=== PATIENT | female | born 1960 ===

== ENCOUNTER 2019-04-26 11:53 | Outpatient (CLI) | payer BC, SELFPAY ==
--- NOTE | ~2019-04-26 | CT_ITS ---
EXAMINATION: CT abdomen pelvis wo con EXAM DATE: 04/26/2019 12:20 INDICATION: Right flank pain, hematuria. TECHNIQUE: Spiral CT of the abdomen and pelvis was performed without contrast. Axial, coronal and sag ittal images were reviewed. The dose-length product (DLP) for this examination was 175.20 mGy-cm. T he exposure was tailored according to patient size (auto mA exposure control), and iterative reconstr uction (ASIR) was used as additional dose reduction technique. There is no prior study for compariso n. FINDINGS: There is mild right-sided hydronephrosis and perinephric fat stranding, and at least partia lly duplicated right renal collecting system. No nephrolithiasis or obstructing stones identified. T he uterus is unremarkable. The bladder is unremarkable. The liver, spleen, adrenal glands and panc reas are unremarkable. Gallbladder is unremarkable. No biliary obstruction. There is no retroperit carias or pelvic lymphadenopathy. The appendix is not positively visualized. There is no pericecal inflammatory change to suggest appe ndicitis. The stomach and small bowel are unremarkable. There is expected amount of colonic stool. No free intraperitoneal gas. The heart is normal in size. There are no pericardial or pleural e ffusions. Triangular shaped 5 mm right middle lobe nodule. Subacute left lower rib fractures latera lly. Mild emphysema. IMPRESSION: 1. Partially duplicated right renal collecting system with mild right hydronephrosis and perinephric fat stranding but no obstructing stones. Could indicate recently passed stone or upper urinary tract infection. Correlate with urinalysis. 2. Subacute left lateral rib fractures. 3. Regular shaped right middle lobe nodule; consider one-year follow-up low-dose chest CT. Reviewed, dictated and finalized at location A. [employer] IMPRESSION: 1. Partially duplicated right renal collecting system with mild right hydronep hrosis and perinephric fat stranding but no obstructing stones. Could indicate recently passed stone or upper urinary tract infection. Correlate with urinalys is. 2. Subacute left lateral rib fractures. 3. Regular shaped right middle lobe nodule; consider one-year follow-up low-do se chest CT.
[2019-04-26 12:37] LABS: Basophils Percent Auto 0.1 % (0.2-1.2); Hemoglobin 12.4 g/dL (12.0-15.0); Immature Granulocyte Absolute 0.05 K/mm3 (0.00-0.031); Immature Granulocyte Percent A 0.3 % (0-0.5); Lymphocytes Absolute Auto 1.15 K/mm3 (0.9-3.2); Lymphocytes Percent Auto 7.3 % (18.3-44.2); Mean Corpuscular HGB Conc 33.5 g/dl (32-36); Mean Corpuscular Hemoglobin 29.2 pg (26-34); Mean Corpuscular Volume 87.3 fl (80-100); Mean Platelet Volume 8.6 fl (7.4-10.4); Monocytes Absolute Auto 0.9 K/mm3 (0.1-0.6); Monocytes Percent Auto 5.9 % (2.6-8.5); Neutrophils Absolute Auto 13.5 K/mm3 (1.3-6.7); Neutrophils Percent Auto 86.4 % (45.5-73.1); Platelet Count Result 315 k/mm3 (150-375); Red Blood Count 4.24 M/mm3 (4.2-5.4); Red Cell Distribution Width 13.6 % (11.5-14.5); White Blood Count 15.7 K/mm3 (4.5-10.0)
[2019-04-26 12:51] LABS: Alanine Aminotransferase 16 U/L (4-35); Albumin Level 4.6 g/dL (3.5-5.1); Alkaline Phosphatase 82 U/L (38-126); Aspartate Amino Transferase 23 U/L (14-36); Bilirubin,Total 0.8 mg/dL (0.2-1.3); Blood Urea Nitrogen 11 mg/dL (7-17); Calcium 9.2 mg/dL (8.4-10.2); Carbon Dioxide 29 mmol/L (22-30); Chloride 99 mmol/L (98-107); Estimated Glomerular Filt Rate > 60; Glucose 114 mg/dL (65-105); Potassium 3.8 mmol/L (3.4-5.0); Sodium 137 mmol/L (137-145)
== END 2019-04-26 11:54 | disposition home or self-care (01) ==
PROVIDERS: PCP Family Medicine; Visit Provider Physician Assistant
DX: R10.9 Unspecified abdominal pain (principal); R31.9 Hematuria, unspecified; S22.42XA Multiple fractures of ribs, left side, initial encounter for closed fracture; X58.XXXA Exposure to other specified factors, initial encounter
CPT/HCPCS: 36415; 74176; 80053; 85025

== ENCOUNTER 2019-05-29 15:05 | Outpatient (CLI) | payer BC, SELFPAY ==
--- NOTE | ~2019-05-29 | CT_ITS ---
EXAMINATION: CT abdomen pelvis wo con EXAM DATE: 05/29/2019 15:32 INDICATION: Right flank pain, hematuria. TECHNIQUE: Spiral CT of the abdomen and pelvis was performed without contrast. Axial, coronal and sag ittal images were reviewed. The dose-length product (DLP) for this examination was 182.30 mGy-cm. T he exposure was tailored according to patient size (auto mA exposure control), and iterative reconstr uction (ASIR) was used as additional dose reduction technique. Comparison is made to prior examinatio n from 04/26/2019. FINDINGS: There is no nephrolithiasis or hydronephrosis. Partially duplicated right renal collecting system. The uterus is unremarkable. The bladder is unremarkable. The liver, spleen, adrenal glands and pancreas are unremarkable. Gallbladder is unremarkable. No biliary obstruction. There is no r etroperitoneal or pelvic lymphadenopathy. The appendix is not positively visualized. There is no pericecal inflammatory change to suggest appe ndicitis. The stomach and small bowel are unremarkable. There is expected amount of colonic stool. No free intraperitoneal gas. The heart is normal in size. There are no pericardial or pleural e ffusions. There is 6 mm triangular shaped right middle lobe density likely granuloma but consider on e-year follow-up low-dose chest CT. Subacute left eighth and ninth rib fractures laterally. IMPRESSION: 1. Partially duplicated right renal collecting system. No nephrolithiasis, hydronephrosis or acute i ntra-abdominal findings. 2. Subacute left lateral rib fractures. 3. Right middle lobe nodule probably granuloma; consider one-year follow-up low-dose chest CT. Reviewed, dictated and finalized at location A. IMPRESSION: 1. Partially duplicated right renal collecting system. No nephrolithiasis, hyd ronephrosis or acute intra-abdominal findings. 2. Subacute left lateral rib fractures. 3. Right middle lobe nodule probably granuloma; consider one-year follow-up lo w-dose chest CT.
== END 2019-05-29 15:06 | disposition home or self-care (01) ==
LOC: ANHIMG 15:07
PROVIDERS: PCP Family Medicine; Visit Provider Physician Assistant
DX: R31.9 Hematuria, unspecified (principal); R91.8 Other nonspecific abnormal finding of lung field
CPT/HCPCS: 74176

== ENCOUNTER 2020-09-12 14:24 | Outpatient (CLI) | payer BC, SELFPAY ==
--- NOTE | ~2020-09-12 | CT_ITS ---
EXAMINATION:CT diagnostic chest wo con DATE: 09/12/2020 14:38 INDICATION: Lung nodule. TECHNIQUE: Computed tomography (CT) of the chest was performed without intravenous contrast. Automate d exposure control and iterative reconstruction technique were employed. The dose-length product (DLP ) was 96.99 mGy-cm. COMPARISON: CT abdomen and pelvis 05/29/2019 FINDINGS: There is mild scarring at the lung apices. There is a 5 mm nodule in right middle lobe, sta ble from 05/29/2019. There is a 3 mm nodule in right upper lobe. A calcified left lung nodule and calci fied left hilar lymph nodes are consistent with old granulomatous disease. No pleural effusion. The h eart size is normal. No pericardial effusion. Breast implants are noted. There is mild thoracic spond ylosis. IMPRESSION: 1. Small pulmonary nodules, likely benign. Reviewed, dictated and finalized at location A.
== END 2020-09-12 14:25 | disposition home or self-care (01) ==
LOC: ANHIMG 14:26
PROVIDERS: PCP Family Medicine; Visit Provider Physician Assistant
DX: R91.8 Other nonspecific abnormal finding of lung field (principal)
CPT/HCPCS: 71250

== ENCOUNTER 2024-08-09 15:52 | Emergency (ER) | payer OTHER, SELFPAY ==
[2024-08-09 16:02] VITALS: BP 148/69; PULSE 66; RESP 16; TEMP 36.3; O2SAT 98
--- NOTE | 2024-08-09 16:03 | ED_ITS ---
HPI - Female Genitourinary General Chief complaint: Urogenital-Female Stated complaint: UTI SYMPTOMS Time Seen by Provider: 08/09/24 16:03 Source: patient Mode of arrival: ambulatory Limitations: no limitations History of Present Illness HPI Narrative: 63-year-old female presents with complaint of urinary urgency, frequency, dribbling for 4 days. Afebrile. No nausea vomiting. Reports lower abdominal pressure. All systems reviewed and negative except as noted above. Related Data Allergies Allergy/AdvReac Type Severity Reaction Status Date / Time No Known Allergies Allergy Mild Verified 08/09/24 16:15 Review of Systems Review of Systems: CONSTITUTIONAL: Denies fever, chills, or sweats. EYES: Denies visual changes, redness, or discharge. ENT: Denies rhinorrhea, congestion, sore throat, or otalgia. CARDIOVASCULAR: Denies chest pain, palpitations, or edema. RESPIRATORY: Denies cough or dyspnea. GASTROINTESTINAL: Denies abdominal pain, nausea, vomiting, or diarrhea. GENITOURINARY: Reports dysuria, frequency, urgency. Denies hematuria. SKIN: Denies rash or itching. MUSCULOSKELETAL: Denies back pain, joint pain, or myalgia. NEUROLOGIC: Denies headache, numbness, or weakness. PSYCHIATRIC: Denies anxiety or depression. All other systems reviewed are negative, except as documented in HPI. PMFSH Past Medical History Medical History Colon polyp Hydronephrosis, right Internal hemorrhoid Left rib fracture Lung nodule < 6cm on CT Pyelonephritis Rectal polyp Right flank pain Family History Family History Unknown Carcinoma of colon Social History Social History Smoking status: Never smoker Second hand tobacco smoke exposure: No Alcohol intake: never Substance use: never Substance use type: does not use Living arrangements: with family Occupation/Education: occupation Gender identity (if verbalized by the patient): Female Comments At time of signature, agree with nursing past medical, surgical, social and family history. There is no relevant family history pertinent to the presenting complaint. Exam Narrative: GENERAL: This is a well-nourished, well-developed patient, in no apparent distress. HEAD: normocephalic, atraumatic. EYES: PERRL. Sclera clear/white. Vision is grossly intact. EARS: External ears normal NOSE: External nose normal NECK: Neck supple, non-tender without lymphadenopathy, masses or thyromegaly. CARDIOVASCULAR: Regular rate and rhythm without murmurs, gallops, or rubs. RESPIRATORY: Clear to auscultation. Breath sounds equal bilaterally. No wheezes, rales, or rhonchi. SKIN: warm, Dry, intact with no suspicious lesions or rash, good texture and turgor. NEURO: awake, alert, and oriented to person, place and time. There were no obvious focal neurologic abnormalities. EXTREMITIES: No joint tenderness, effusion, or edema noted. Course Course Level of Care: Express Care Visit Vital Signs Vital signs: Vital Signs Temperature 36.3 C L 08/09/24 16:02 Pulse Rate 66 08/09/24 16:02 Respiratory Rate 16 08/09/24 16:02 Blood Pressure 148/69 H 08/09/24 16:02 Pulse Oximetry 98 08/09/24 16:02 Temperature 36.3 C L 08/09/24 16:02 Pulse Rate 66 08/09/24 16:02 Respiratory Rate 16 08/09/24 16:02 Blood Pressure 148/69 H 08/09/24 16:02 Pulse Oximetry 98 08/09/24 16:02 Reviewed MDM - Female Genitourinary MDM Narrative Medical decision making narrative: Urinalysis positive leukocytes, blood. Afebrile. Patient is well-appearing, nontoxic. Will treat with Augmentin. Lab Data Labs: Lab Results 08/09/24 Range/Units 16:11 POC Urine Color Dark POC Urine Clarity Cloudy POC Urine pH 6.0 POC Ur Specif [place] 1.030 POC Urine Protein Negative (Negative) POC Ur Glucose (UA) Negative (Negative) POC Urine Ketones Negative (Negative) POC Urine Blood Trace (Negative) POC Urine Nitrite Negative (Negative) POC Urine Bilirubin Negative (Negative) POC Urine Urobilinogen 0.2 POC U Leukocyte Esteras 1+ (Negative) Discharge Plan Discharge Clinical Impression: Urinary tract infection Patient Disposition: Home Condition: Stable Instructions: Antibiotic Form, Urinary Tract Infection in Women (ED) Additional Instructions: Take antibiotic as prescribed until gone. May take [id number] azo as needed for urinary symptoms. Take as directed on packaging. Drink at least 64 oz of water a day. See your doctor if symptoms are improving. Patient Language: Polish Prescriptions: New amoxicillin-pot clavulanate [Augmentin] 500-125 mg tablet 1 tablet PO BID 5 Days Qty: 10 0RF Follow-up/Referrals: Manpreet Garcia MD [Primary Care Provider] - Time of Disposition: 16:19
[2024-08-09 16:13] LABS: EDUAAPPEAR Cloudy; EDUABILI Negative (Negative); EDUABLOOD Trace (Negative); EDUACOLOR1 Dark; EDUAGLUCOSE Negative (Negative); EDUAKETONE Negative (Negative); EDUALEUKO 1+ (Negative); EDUANITRATE Negative (Negative); EDUAPROTEIN Negative (Negative); EDUAUROBILI 0.2
== END 2024-08-09 16:22 | disposition home or self-care (01) ==
PROVIDERS: Emergency Provider Nurse Practitioner Family; PCP Family Medicine
DX: N39.0 Urinary tract infection, site not specified (principal)
CPT/HCPCS: 81003; 87086; 99213; G0463

== ENCOUNTER 2024-10-26 08:21 | Emergency (ER) | payer OTHER, SELFPAY ==
[2024-10-26 08:43] VITALS: BP 159/65; PULSE 74; RESP 16; TEMP 36.2; O2SAT 98
--- NOTE | 2024-10-26 08:51 | ED_ITS ---
HPI - Female Genitourinary General Chief complaint: Urogenital-Female Stated complaint: Uti Symptoms Time Seen by Provider: 10/26/24 08:51 Source: patient and RN notes reviewed Mode of arrival: ambulatory Limitations: no limitations History of Present Illness HPI Narrative: 64-year-old female presented for complaint of burning with urination, frequency, and suprapubic pressure. Onset 5 days. Patient has used a regular 0 pills, increased water intake, and then started a ?woman's vaginal health? vitamin without much improvement. The symptoms were worse today. Denies hematuria, nausea, vomiting, abdominal pain, flank pain, constipation, diarrhea, fevers or chills. Related Data Allergies Allergy/AdvReac Type Severity Reaction Status Date / Time No Known Allergies Allergy Mild Verified 10/26/24 08:40 Review of Systems Review of Systems: CONSTITUTIONAL: Denies body aches, fever, chills, or sweats. CARDIOVASCULAR: Denies chest pain, palpitations, or edema. RESPIRATORY: Denies cough or dyspnea. GASTROINTESTINAL: Denies abdominal pain, nausea, vomiting, or diarrhea. GENITOURINARY: Reports dysuria, frequency, urgency, denies hematuria, flank pain, discharge SKIN: Denies rash, itching, or wounds. MUSCULOSKELETAL: Denies back pain or myalgia. [facility] Past Medical History Medical History Colon polyp Hydronephrosis, right Internal hemorrhoid Left rib fracture Lung nodule < 6cm on CT Pyelonephritis Rectal polyp Right flank pain Family History Family History Unknown Carcinoma of colon Social History Social History Smoking status: Never smoker Second hand tobacco smoke exposure: No Alcohol intake: never Substance use: never Substance use type: does not use Living arrangements: with family Occupation/Education: occupation Gender identity (if verbalized by the patient): Female Comments At time of signature, I have reviewed and agree with nursing past medical, surgical, social and family history unless otherwise noted. Please see nursing chart for further information. There is no relevant family history pertinent to the presenting complaint Exam Narrative: GENERAL: Well-appearing and in no acute distress. ENT: Mucous membranes pink and moist. NECK: Normal AROM. Supple. CHEST: No respiratory distress. Clear to auscultation. HEART: Regular rate and rhythm. ABDOMEN: Soft, mild suprapubic tenderness, nondistended, normal active bowel sounds. No CVA tenderness SKIN: Warm, dry, no rash. NEURO: No focal deficits. Alert and oriented x3. Gait steady. PSYCH: Normal affect. Course Course Emergency Course: Patient is aware of diagnosis, understands and agrees to treatment plan. Anticipatory guidance given. Patient agrees to follow-up as directed and is aware of reasons to seek care at the emergency department. Portions of this record may have been created with voice recognition software Level of Care: Express Care Visit Vital Signs Vital signs: Vital Signs Temperature 97.1 F L 10/26/24 08:43 Pulse Rate 74 10/26/24 08:43 Respiratory Rate 16 10/26/24 08:43 Blood Pressure 159/65 H 10/26/24 08:43 Pulse Oximetry 98 10/26/24 08:43 Temperature 97.1 F L 10/26/24 08:43 Pulse Rate 74 10/26/24 08:43 Respiratory Rate 16 10/26/24 08:43 Blood Pressure 159/65 H 10/26/24 08:43 Pulse Oximetry 98 10/26/24 08:43 Reviewed MDM - Female Genitourinary MDM Narrative Medical decision making narrative: Discussed physical exam findings and urine dip, 1+ blood, 2+ leukocytes. Pres cription Bactrim sent. Reviewed previous urine culture with pt from 07/2024. Advised supportive measures and signs/symptoms to go to the ER. Pt is appropriate for outpt treatment and f/u. Differential Diagnosis Differential diagnosis: Likely urinary tract infection, bacterial vaginosis, vaginitis and cystitis Discharge Plan Discharge Clinical Impression: Dysuria Patient Disposition: Home Condition: Stable Instructions: Antibiotic Form, Urinary Tract Infection in Women (ED) Additional Instructions: Take the antibiotic as prescribed The urine will be sent of for a culture to identify what type of bacteria is causing your infection. If the culture shows that the antibiotic will not get rid of your infection, you will be notified and a new antibiotic will be called in for you. Increase water intake you will need to follow up with your PCP, call to schedule an appointment. Go to the ER for any worsening symptoms or concerns Patient Language: Khmer Prescriptions: New sulfamethoxazole-trimethoprim [Bactrim DS] 800-160 mg tablet 1 tablet PO Q12H 5 Days Qty: 10 0RF Follow-up/Referrals: Manpreet Garcia MD [Primary Care Provider] - Time of Disposition: 08:58
[2024-10-26 08:53] LABS: EDUAAPPEAR Clear; EDUABILI Negative (Negative); EDUABLOOD 1+ (Negative); EDUACOLOR1 Light/Pale; EDUAGLUCOSE Negative (Negative); EDUAKETONE Negative (Negative); EDUALEUKO 2+ (Negative); EDUANITRATE Negative (Negative); EDUAPH 6.5; EDUAPROTEIN Negative (Negative); EDUASPGRAVITY 1.010; EDUAUROBILI 0.2
== END 2024-10-26 09:03 | disposition home or self-care (01) ==
PROVIDERS: Emergency Provider Nurse Practitioner Family; PCP Family Medicine
DX: R30.0 Dysuria (principal)
CPT/HCPCS: 81003; 87086; 99213; G0463